=== PATIENT | female | born 1995 | race Caucasian/White ===

== ENCOUNTER 2017-11-08 17:55 | Inpatient (IN) | payer OTHER ==
[~2017-11-08] VITALS: Ht 160 cm; Wt 80.6 kg
[2017-11-08 18:10] VITALS: BP 171/98; PULSE 100; RESP 18; TEMP 97.5; O2SAT 100
[2017-11-08 19:01] LABS: AUTOMATED NEUTROPHIL # 4.4 TH/MM3 (1.8-7.7); BASOPHIL % 0.6 % (0.0-2.0); EOSINOPHIL # 0.1 TH/MM3 (0-0.4); HEMATOCRIT 43.9 % (35.0-46.0); HEMOGLOBIN 14.8 GM/DL (11.6-15.3); LYMPH % 33.3 % (9.0-44.0); LYMPHOCYTE # 2.5 TH/MM3 (1.0-4.8); MEAN CELL VOLUME 88.3 FL (80.0-100.0); MEAN CORPUSCULAR HEMOGLOBIN 29.7 PG (27.0-34.0); MEAN CORPUSCULAR HGB CONC 33.6 % (32.0-36.0); MEAN PLATELET VOLUME 8.1 FL (7.0-11.0); MONO % 5.3 % (0.0-8.0); MONOCYTE # 0.4 TH/MM3 (0-0.9); NEUT % 59.8 % (16.0-70.0); PLATELET COUNT 300 TH/MM3 (150-450); RED BLOOD COUNT 4.97 MIL/MM3 (4.00-5.30); RED CELL DISTRIBUTION WIDTH 12.3 % (11.6-17.2); WHITE BLOOD COUNT 7.4 TH/MM3 (4.0-11.0)
[2017-11-08 19:35] LABS: ACETAMINOPHEN LESS THAN 2.0 MCG/ML (10.0-30.0); ALBUMIN 3.9 GM/DL (3.4-5.0); ALKALINE PHOSPHATASE 67 U/L (45-117); ALT (GPT) 27 U/L (9-42); AST (GOT) 27 U/L (16-38); BICARBONATE 28.9 MEQ/L (21.0-32.0); BLOOD UREA NITROGEN 7 MG/DL (7-18); CALCIUM 9.3 MG/DL (8.5-10.1); CHLORIDE 107 MEQ/L (98-107); CREATININE 0.69 MG/DL (0.50-1.00); GLOMERULAR FILTRATION RATE 108 ML/MIN (>89); GLUCOSE,RANDOM 84 MG/DL (74-106); SODIUM (NA) 143 MEQ/L (136-145); TOTAL BILIRUBIN ADULT 0.2 MG/DL (0.2-1.0); TOTAL PROTEIN 7.6 GM/DL (6.4-8.2)
[2017-11-08] MEDS ORDERED: IBUPROFEN 800 MG TAB PO ONE (20:45)
--- NOTE | 2017-11-08 21:07 | PD ---
HPI Chief Complaint: Psychiatric Symptoms Time Seen by Provider: 20:33 Travel History International Travel<30 days: No Contact w/Intl Traveler<30days: No Traveled to known affect area: No History of Present Illness HPI 22-year-old female presents emergency department voluntarily for psychiatric evaluation. Patient states she has history of cutting. She has been more more depressed as of late and wanted to kill herself today. Her plan was to cut her wrists. She states that her called her and talked her out of it. Denies illicit drug use. Denies any other acute medical needs at this time. [facility] Past Medical History Medical History: Denies Significant Hx ?: Not LMP: 10/24/2017 Past Surgical History Tonsillectomy: Yes Social History Alcohol Use: No Tobacco Use: No Substance Use: No (PAST USE OF MARIJUANA) Allergies-Medications (Allergen,Severity, Reaction): Coded Allergies: codeine (Verified Allergy, Unknown, 11/08/17) morphine (Verified Allergy, Unknown, 11/08/17) Reported Meds & Prescriptions Reported Meds & Active Scripts Active No Active Prescriptions or Reported Medications Review of Systems Except as stated in HPI: all other systems reviewed are Neg Physical Exam Narrative GENERAL: Well-nourished female patient, no acute distress. SKIN: Focused skin assessment warm/dry. HEAD: Atraumatic. Normocephalic. EYES: Pupils equal and round. No scleral icterus. No injection or drainage. ENT: No nasal bleeding or discharge. Mucous membranes pink and moist. NECK: Trachea midline. No JVD. CARDIOVASCULAR: Regular rate and rhythm. No murmur appreciated. RESPIRATORY: No accessory muscle use. Clear to auscultation. Breath sounds equal bilaterally. GASTROINTESTINAL: Abdomen soft, non-tender, nondistended. Hepatic and splenic margins not palpable. MUSCULOSKELETAL: No obvious deformities. No clubbing. No cyanosis. No edema. NEUROLOGICAL: Awake and alert. No obvious cranial nerve deficits. Motor grossly within normal limits. Normal speech. Data Data Last Documented VS Vital Signs Date Time Temp Pulse Resp B/P (MAP) Pulse Ox O2 Delivery O2 Flow Rate FiO2 11/08/17 18:10 97.5 100 18 171/98 (122) 100 Orders Orders Complete Blood Count With Diff (11/08/17 18:12) Comprehensive Metabolic Panel (11/08/17 18:12) Thyroid Stimulating Hormone (11/08/17 18:12) Ed Urine Pregnancytest Poc (11/08/17 18:12) Psych Screen (11/08/17 18:12) Drug Screen, Random Urine (11/08/17 18:12) Alcohol (Ethanol) (11/08/17 18:12) Salicylates (Aspirin) (11/08/17 18:12) Tylenol (Acetaminophen) (11/08/17 18:12) Ibuprofen (Motrin) (11/08/17 20:45) Admit Order (Ed Use Only) (11/08/17 21:27) Labs Laboratory Tests Test 11/08/17 18:45 White Blood Count 7.4 TH/MM3 Red Blood Count 4.97 MIL/MM3 Hemoglobin 14.8 GM/DL Hematocrit 43.9 % Mean Corpuscular Volume 88.3 FL Mean Corpuscular Hemoglobin 29.7 PG Mean Corpuscular Hemoglobin Concent 33.6 % Red Cell Distribution Width 12.3 % Platelet Count 300 TH/MM3 Mean Platelet Volume 8.1 FL Neutrophils (%) (Auto) 59.8 % Lymphocytes (%) (Auto) 33.3 % Monocytes (%) (Auto) 5.3 % Eosinophils (%) (Auto) 1.0 % Basophils (%) (Auto) 0.6 % Neutrophils # (Auto) 4.4 TH/MM3 Lymphocytes # (Auto) 2.5 TH/MM3 Monocytes # (Auto) 0.4 TH/MM3 Eosinophils # (Auto) 0.1 TH/MM3 Basophils # (Auto) 0.0 TH/MM3 CBC Comment DIFF FINAL Differential Comment Blood Urea Nitrogen 7 MG/DL Creatinine 0.69 MG/DL Random Glucose 84 MG/DL Total Protein 7.6 GM/DL Albumin 3.9 GM/DL Calcium Level 9.3 MG/DL Alkaline Phosphatase 67 U/L Aspartate Amino Transf (AST/SGOT) 27 U/L Alanine Aminotransferase (ALT/SGPT) 27 U/L Total Bilirubin 0.2 MG/DL Sodium Level 143 MEQ/L Potassium Level 4.0 MEQ/L Chloride Level 107 MEQ/L Carbon Dioxide Level 28.9 MEQ/L Anion Gap 7 MEQ/L Estimat Glomerular Filtration Rate 108 ML/MIN Thyroid Stimulating Hormone 3rd Gen 0.586 uIU/ML Salicylates Level LESS THAN 1.7 MG/DL Urine Opiates Screen NEG Acetaminophen Level LESS THAN 2.0 MCG/ML Urine Barbiturates Screen NEG Urine Amphetamines Screen NEG Urine Benzodiazepines Screen NEG Urine Cocaine Screen NEG Urine Cannabinoids Screen POS Ethyl Alcohol Level LESS THAN 3 MG/DL MDM Medical Decision Making Medical Screen Exam Complete: Yes Emergency Medical Condition: Yes Medical Record Reviewed: Yes Differential Diagnosis Mood disorder versus personality disorder versus adjustment reaction disorder Narrative Course 22-year-old female presents emergency department voluntarily for psychiatric evaluation. Patient appears without distress. Vital signs are stable. Laboratory Tests Test 11/08/17 18:45 White Blood Count 7.4 TH/MM3 Red Blood Count 4.97 MIL/MM3 Hemoglobin 14.8 GM/DL Hematocrit 43.9 % Mean Corpuscular Volume 88.3 FL Mean Corpuscular Hemoglobin 29.7 PG Mean Corpuscular Hemoglobin Concent 33.6 % Red Cell Distribution Width 12.3 % Platelet Count 300 TH/MM3 Mean Platelet Volume 8.1 FL Neutrophils (%) (Auto) 59.8 % Lymphocytes (%) (Auto) 33.3 % Monocytes (%) (Auto) 5.3 % Eosinophils (%) (Auto) 1.0 % Basophils (%) (Auto) 0.6 % Neutrophils # (Auto) 4.4 TH/MM3 Lymphocytes # (Auto) 2.5 TH/MM3 Monocytes # (Auto) 0.4 TH/MM3 Eosinophils # (Auto) 0.1 TH/MM3 Basophils # (Auto) 0.0 TH/MM3 CBC Comment DIFF FINAL Differential Comment Blood Urea Nitrogen 7 MG/DL Creatinine 0.69 MG/DL Random Glucose 84 MG/DL Total Protein 7.6 GM/DL Albumin 3.9 GM/DL Calcium Level 9.3 MG/DL Alkaline Phosphatase 67 U/L Aspartate Amino Transf (AST/SGOT) 27 U/L Alanine Aminotransferase (ALT/SGPT) 27 U/L Total Bilirubin 0.2 MG/DL Sodium Level 143 MEQ/L Potassium Level 4.0 MEQ/L Chloride Level 107 MEQ/L Carbon Dioxide Level 28.9 MEQ/L Anion Gap 7 MEQ/L Estimat Glomerular Filtration Rate 108 ML/MIN Thyroid Stimulating Hormone 3rd Gen 0.586 uIU/ML Salicylates Level LESS THAN 1.7 MG/DL Urine Opiates Screen NEG Acetaminophen Level LESS THAN 2.0 MCG/ML Urine Barbiturates Screen NEG Urine Amphetamines Screen NEG Urine Benzodiazepines Screen NEG Urine Cocaine Screen NEG Urine Cannabinoids Screen POS Ethyl Alcohol Level LESS THAN 3 MG/DL Lab work is without acute concern. Patient is medically cleared to undergo psychiatric screening for further evaluation and disposition. Mental health screening discussed with the patient. Psychiatric screen ordered. Diagnosis Primary Impression: Adjustment reaction Qualified Codes: F43.25 - Adjustment disorder with mixed disturbance of emotions and conduct Scripts No Active Prescriptions or Reported Meds Condition: Mine Crews Nov 08, 2017 21:07
[2017-11-08] MEDS ORDERED: LORazepam 1 MG TAB PO PRN (22:00)
[2017-11-08] MEDS ORDERED: ACETAMINOPHEN 325 MG TAB PO PRN (22:00)
[2017-11-08] MEDS ORDERED: MAGNESIUM HYDROXIDE SUSP 30 ML CUP PO PRN (22:00)
[2017-11-08] MEDS ORDERED: traZODone HCL 50 MG TAB PO ONE (22:00)
[2017-11-08] MEDS ORDERED: LORazepam 2 MG/ML VIAL IM PRN (22:00)
[2017-11-08] MEDS ORDERED: ALUMINUM/MAGNESIUM/SIMETH 30 ML CUP PO PRN (22:00)
[2017-11-08] MEDS ORDERED: QUEtiapine FUMARATE 25 MG TAB PO ONE (22:15)
[2017-11-08 22:29] VITALS: BP 131/89; PULSE 87; RESP 16; TEMP 98.4; O2SAT 98
[2017-11-09 09:10] LABS: CHOLESTEROL 155 MG/DL (120-200); TRIGLYCERIDES 61 MG/DL (42-150)
[2017-11-09 09:11] LABS: CHOLESTEROL/ HDL RATIO 1.99 RATIO; HDL CHOLESTEROL 77.7 MG/DL (40.0-60.0); LDL CHOLESTEROL 65 MG/DL (0-99)
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
[2017-11-09] MEDS ORDERED: BENZTROPINE MESYLATE 1 MG TAB PO PRN (14:00)
[2017-11-09] MEDS: ARIPiprazole 5 MG TAB PO SCH (14:00)
[2017-11-09] MEDS: FLUoxetine HCL 20 MG CAP PO SCH (14:00)
[2017-11-09] MEDS ORDERED: BENZTROPINE MESYLATE 2 MG/2 ML VIAL IM PRN (14:00)
[2017-11-09 15:52] LABS: HEMOGLOBIN A1C 4.9 % (4.3-6.0)
[2017-11-09 17:29] VITALS: BP 122/68; PULSE 66; RESP 18; TEMP 98.5; O2SAT 99
[2017-11-09 18:12] VITALS: BP 133/71; PULSE 66; RESP 17; TEMP 98.8; O2SAT 99
[2017-11-09] MEDS ORDERED: ZOLPIDEM TARTRATE 5 MG TAB PO PRN (21:00)
[2017-11-10 05:55] VITALS: BP 131/57; PULSE 109; RESP 14; TEMP 98.1; O2SAT 98
[2017-11-10] MEDS: ARIPiprazole 5 MG TAB PO SCH (09:02)
[2017-11-10] MEDS: FLUoxetine HCL 20 MG CAP PO SCH (09:02)
--- NOTE | 2017-11-10 09:19 | EKG ---
Date Performed: 11/09/2017 Time Performed: 14:29:43 PTAGE: 22 years EKG: Sinus rhythm WITH SINUS ARRHYTHMIA POSSIBLE LEFT ATRIAL ENLARGEMENT BORDERLINE ECG NO PREVIOUS TRACING DOCTOR: Tommy De Leon Interpretating Date/Time 11/10/2017 09:18:27
--- NOTE | 2017-11-10 10:19 | HHI.PYPN ---
Subjective Chief Complaint: Depression, suicidal ideation Remarks Patient seen and examined with nurse. Chart reviewed. Case discussed with nursing staff. No behavioral issues noted overnight. On my examination today, the patient reports that her mood is somewhat improved although she remains fairly depressed. She has continued to experience some intrusive thoughts. Sleep was poor and the patient feels fatigued this morning. She denies any SI or urged to self-injurious behavior. Complains of some mild nausea without emesis from medications but declines an antiemetic. No other physical complaints. Review of Systems Except as stated in HPI: all other systems reviewed are Neg Mental Status Examination Appearance: Appropriate Consciousness: Alert Orientation: x4 Motor Activity: Normal gait, Other (No motor abnormalities noted) Speech: Unremarkable Language: Adequate Fund of Knowledge: Adequate Attention and Concentration: Adequate Memory: Unremarkable (Intact on clinical exam) Mood: Anxious, Other (Depressed but improving somewhat) Affect: Anxious, Other (More reactive) Thought Process & Associations: Intact, Logical, Linear Thought Content: Other (Intrusive thoughts) Hallucination Type: None Delusion Type: None Suicidal Ideation: No Suicidal Plan: No Suicidal Intention: No Homicidal Ideation: No Homicidal Plan: No Homicidal Intention: No Insight: Adequate Judgment: Adequate Results Labs Labs reviewed. EKG reviewed. QTc within normal limits. Vitals/IOs Vital Signs Date Time Temp Pulse Resp B/P (MAP) Pulse Ox O2 Delivery O2 Flow Rate FiO2 11/10/17 05:55 98.1 109 14 131/57 (81) 98 Assessment & Plan Problem List: (1) Major depressive disorder, single episode with psychotic features with anxious distress ICD Codes: F32.3 - Major depressive disorder, single episode, severe with psychotic features (2) Use of cannabis ICD Codes: F12.90 - Cannabis use, unspecified, uncomplicated Assessment & Plan Continue Prozac and Abilify as ordered. To consider medication titration tomorrow to target ongoing symptoms. Continue to monitor on inpatient unit. Continue other medications and care as ordered. Justification for Cont. Inpt. Risk for decompensation in less restrictive environment. Discharge Planning Pending psychiatric stabilization Request HC Surrog/Guard Advoc?: No Woody Burgos MD Nov 10, 2017 10:19
[2017-11-10 18:25] VITALS: BP 134/71; PULSE 109; RESP 20; TEMP 98.1; O2SAT 99
[2017-11-11 05:26] VITALS: BP 143/67; PULSE 93; RESP 16; TEMP 98.5; O2SAT 98
[2017-11-11] MEDS: ARIPiprazole 5 MG TAB PO SCH (09:04)
[2017-11-11] MEDS: FLUoxetine HCL 20 MG CAP PO SCH (09:04)
--- NOTE | 2017-11-11 12:54 | HHI.PYPN ---
Subjective Chief Complaint: Depression, suicidal ideation Remarks Patient seen and examined with nurse. Chart reviewed. Case discussed with nursing staff. On my examination today, patient reports mood continues to improve. No intrusive thoughts. No SI or HI. Suspecting significant component of improvement in mood is related to the lower stress milieu, I suggest to patient that we titrate her Prozac to a dose more likely to be therapeutic in the long-term, and patient is agreeable to this. Denies side effects from medications. No physical complaints. Review of Systems Except as stated in HPI: all other systems reviewed are Neg Mental Status Examination Appearance: Appropriate Consciousness: Alert Orientation: x4 Motor Activity: Normal gait, Other (No abnormal motor movements noted) Speech: Unremarkable Language: Adequate Fund of Knowledge: Adequate Attention and Concentration: Adequate Memory: Unremarkable (Intact on clinical exam) Mood: Anxious, Other (Improving) Affect: Anxious, Other (Again more reactive) Thought Process & Associations: Intact, Logical, Linear Thought Content: Appropriate (No intrusive thoughts) Hallucination Type: None Delusion Type: None Suicidal Ideation: No Suicidal Plan: No Suicidal Intention: No Homicidal Ideation: No Homicidal Plan: No Homicidal Intention: No Insight: Adequate Judgment: Adequate Results Labs Labs reviewed Vitals/IOs Vital Signs Date Time Temp Pulse Resp B/P (MAP) Pulse Ox O2 Delivery O2 Flow Rate FiO2 11/11/17 05:26 98.5 93 16 143/67 (92) 98 Assessment & Plan Problem List: (1) Major depressive disorder, single episode with psychotic features with anxious distress ICD Codes: F32.3 - Major depressive disorder, single episode, severe with psychotic features (2) Use of cannabis ICD Codes: F12.90 - Cannabis use, unspecified, uncomplicated Assessment & Plan Titrate Prozac to 40 mg daily. Continue Abilify as ordered. Continue to monitor on the inpatient unit. Continue other medications and care as ordered. Justification for Cont. Inpt. Med changes. Risk for decompensation in less restrictive environment. Discharge Planning Pending psychiatric stabilization Request HC Surrog/Guard Advoc?: No Woody Burgos MD Nov 11, 2017 12:54
[2017-11-11 18:31] VITALS: BP 156/86; PULSE 104; RESP 17; TEMP 98.9; O2SAT 98
[2017-11-12 05:27] VITALS: BP 133/69; PULSE 92; RESP 16; TEMP 98.4; O2SAT 98
[2017-11-12] MEDS ORDERED: FLUoxetine HCL 20 MG CAP PO SCH (09:00)
[2017-11-12] MEDS: ARIPiprazole 5 MG TAB PO SCH (10:11)
[2017-11-12] MEDS ORDERED: ARIP1TAB11 PO (14:02)
[2017-11-12] MEDS ORDERED: FLUO20CA12 PO (14:02)
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
== END 2017-11-12 16:00 | disposition home or self-care (01) | DRG 885 ==
LOC: NEPJ 17:55 → NEDA 21:29 → H260 22:17
PROVIDERS: ADMIT Psychiatry & Neurology Psychiatry; ATTEND Psychiatry & Neurology Psychiatry
DX: F32.3 Major depressive disorder, single episode, severe with psychotic features (principal); R45.851 Suicidal ideations; F12.90 Cannabis use, unspecified, uncomplicated; Z62.810 Personal history of physical and sexual abuse in childhood; Z81.8 Family history of other mental and behavioral disorders; Z88.5 Allergy status to narcotic agent; Z91.5 Personal history of self-harm
CPT/HCPCS: 80053; 80061; 80307; 83036; 84443; 84703; 85025; 93005; 99284

== ENCOUNTER 2017-12-06 14:38 | Inpatient (IN) | payer OTHER ==
[~2017-12-06] VITALS: Ht 171.4 cm; Wt 78.2 kg
[~2017-12-06 14:38] MED LIST: ARIP1TAB11 PO; FLUO20CA12 PO
[2017-12-06 15:22] VITALS: BP 154/106; PULSE 85; RESP 20; TEMP 98.4; O2SAT 100
--- NOTE | 2017-12-06 15:51 | PD ---
HPI Chief Complaint: Psychiatric Symptoms Time Seen by Provider: 15:51 Travel History International Travel<30 days: No Contact w/Intl Traveler<30days: No Traveled to known affect area: No History of Present Illness HPI 22-year-old female came to the emergency room with history of depression and obsessive-compulsive thoughts. Patient has history of depression and OCD and is on Prozac. She says the medications were working but recently it stopped working and she has been getting these thoughts severely since yesterday. She has been vomiting since she has bulimia as well and saying mean things to people that she does not want to. Patient was very tearful while she was narrating this. Vital signs are stable. She denies using alcohol or drugs. Upon asking she said there could be a chance of being since she has been having unprotected sex without any contraception. She has not done anything to hurt herself yet. She has been having suicidal thoughts. [facility] Past Medical History Narrative Medical List of her past medical, surgical, social and family history is reviewed from the nursing note Anxiety: Yes Depression: Yes Cancer: No Cardiovascular Problems: No Diabetes: No Endocrine: No Genitourinary: No Headaches: No Immune Disorder: No Musculoskeletal: No Neurologic: No Psychiatric: Yes (anxiety, depression, suicidal ideation, racing thoughts) Reproductive: No Respiratory: No Seizures: No ?: Not Past Surgical History Abdominal Surgery: No AICD: No Arteriovenous Shunt: No Cardiac Surgery: No Ear Surgery: No Endocrine Surgery: No Eye Surgery: No Genitourinary Surgery: No Gynecologic Surgery: No Insulin Pump: No Joint Replacement: No Oral Surgery: No Pacemaker: No Thoracic Surgery: No Tonsillectomy: Yes Social History Alcohol Use: No Tobacco Use: No Substance Use: Yes (thc) Allergies-Medications (Allergen,Severity, Reaction): Coded Allergies: codeine (Verified Allergy, Unknown, 11/08/17) morphine (Verified Allergy, Unknown, 11/08/17) Comments List of her allergies reviewed from the nursing note. Reported Meds & Prescriptions Reported Meds & Active Scripts Active Aripiprazole 5 Mg Tab 5 Mg PO DAILY 15 Days Fluoxetine (Fluoxetine HCl) 20 Mg Capsule 40 Mg PO DAILY 15 Days Narrative Medication List of her home medications reviewed from the nursing note. Review of Systems Except as stated in HPI: all other systems reviewed are Neg Psychiatric: Positive: Depression, Suicidal Ideations Physical Exam Narrative GENERAL: Awake, alert, tearful SKIN: Focused skin assessment warm/dry. HEAD: Atraumatic. Normocephalic. EYES: Pupils equal and round. No scleral icterus. No injection or drainage. ENT: No nasal bleeding or discharge. Mucous membranes pink and moist. NECK: Trachea midline. No JVD. CARDIOVASCULAR: Regular rate and rhythm. No murmur appreciated. RESPIRATORY: No accessory muscle use. Clear to auscultation. Breath sounds equal bilaterally. GASTROINTESTINAL: Abdomen soft, non-tender, nondistended. Hepatic and splenic margins not palpable. MUSCULOSKELETAL: No obvious deformities. No clubbing. No cyanosis. No edema. NEUROLOGICAL: Awake and alert. No obvious cranial nerve deficits. Motor grossly within normal limits. Normal speech. PSYCHIATRIC: Appropriate mood and affect; insight and judgment normal. Data Data Last Documented VS Vital Signs Date Time Temp Pulse Resp B/P (MAP) Pulse Ox O2 Delivery O2 Flow Rate FiO2 12/06/17 15:22 98.4 85 20 154/106 (122) 100 Orders Orders Ed Urine Pregnancytest Poc (12/06/17 15:57) Drug Screen, Random Urine (12/06/17 16:01) Psych Screen (12/06/17 16:01) MDM Medical Decision Making Medical Screen Exam Complete: Yes Emergency Medical Condition: Yes Medical Record Reviewed: Yes Differential Diagnosis Major depression, suicidal ideation Narrative Course 4:24 PM cleared this patient. Psych nurse is here to take her to the [facility]. She will get a psych evaluation there. Procedures EKG Prior to Arrival: Hayden Peña MD December 06, 2017 15:51
[2017-12-06] MEDS ORDERED: FLUO20CA12 PO (17:52)
[2017-12-06] MEDS ORDERED: ARIP1TAB16 PO (17:52)
[2017-12-06] MEDS ORDERED: ACETAMINOPHEN 325 MG TAB PO PRN (18:00)
[2017-12-06] MEDS ORDERED: ALUMINUM/MAGNESIUM/SIMETH 30 ML CUP PO PRN (18:00)
[2017-12-06] MEDS ORDERED: MAGNESIUM HYDROXIDE SUSP 30 ML CUP PO PRN (18:00)
[2017-12-06 18:09] VITALS: BP 136/68; PULSE 72; RESP 18; TEMP 98.4; O2SAT 96
--- NOTE | 2017-12-06 18:10 | PD ---
History of Present Illness Chief Complaint: Psychiatric Symptoms Time Seen by Provider: 17:45 Travel History International Travel<30 Days: No Contact w/Intl Traveler<30days: No Known affected area: No Legal Status Legal Status: Voluntary History of Present Illness: This is a 30 year old , female who presents voluntarily to this facility for reported worsening suicidal ideation. Patient is known to this facility with one previous admission for the same thing. She advises that approximately a week ago her fluoxetine and Abilify were decreased by half and she noticed that her thoughts of harming herself have been progressively getting worse. Patient states that her plan would be to overdose on pills and relates that she is even gone so far as to lay the pills out. Reviewed electronic medical record, labs, discuss case with staff. Patient's tox screen is negative. Patient was evaluated in her room and drape eyed. She was found to be awake, alert, and oriented 4. Her speech is clear, logical, and organized. There is no indication of internal stimulation or thought blocking. She states that she is having increasing suicidal thoughts and has laid out plans. She denies being homicidal, or experiencing auditory or visual hallucinations. I can elicit no delusional material. Her mood is sad as is her affect. She is soft spoken and relates that her has noticed a change in her of late. She reports a history of OCD and states that she just cannot control her thoughts recently she states, "it gets to be too much and I cannot control them". She lives with her and has a part-time job at [employer]. She denies using cigarettes, states that she drinks alcohol very occasionally, and denies drug use reporting that she "quit marijuana about a month ago". PFSH Past Medical History Anxiety: Yes Depression: Yes Cancer: No Cardiovascular Problems: No Diabetes: No Endocrine: No Genitourinary: No Headaches: No Immune Disorder: No Musculoskeletal: No Neurologic: No Psychiatric: Yes (anxiety, depression, suicidal ideation, racing thoughts) Reproductive: No Respiratory: No Seizures: No ?: Not Past Surgical History Abdominal Surgery: No AICD: No Arteriovenous Shunt: No Cardiac Surgery: No Ear Surgery: No Endocrine Surgery: No Eye Surgery: No Genitourinary Surgery: No Gynecologic Surgery: No Insulin Pump: No Joint Replacement: No Oral Surgery: No Pacemaker: No Thoracic Surgery: No Tonsillectomy: Yes Psychiatric History Psychiatric History Patient was treated and patient at this facility for suicidal ideation previously. Hx Psychiatric Treatment: Pt states she has had symptoms for a long time but sought treatment about a year ago. History of Inpatient Treatment: Yes Guns or firearms in home: No Social History Lives with . No tobacco use, very occasional alcohol use, denies illicit substance use at this time. Hx Alcohol Use: No Hx Tobacco Use: No Hx Substance Use: No Hx of Substance Use Treatment: No Allergies-Medications (Allergen,Severity, Reaction): Coded Allergies: codeine (Verified Allergy, Unknown, 12/06/17) Per pt. morphine (Verified Allergy, Unknown, 12/06/17) Per pt. Reported Meds & Prescriptions Reported Meds & Active Scripts Active Reported Fluoxetine (Fluoxetine HCl) 20 Mg Capsule 20 Mg PO DAILY Aripiprazole 2 Mg Tab 2 Mg PO DAILY Mental Status Examination Appearance: Appropriate Consciousness: Alert Orientation: x4 Speech: Unremarkable Language: Adequate Fund of Knowledge: Adequate Attention and Concentration: Adequate Memory: Unremarkable Mood: Sad Affect: Sad Thought Process & Associations: Intact Thought Content: Appropriate, Obsessions (With suicidal thoughts) Hallucination Type: None Delusion Type: None Suicidal Ideation: Yes Suicidal Plan: Yes Suicidal Intention: No Homicidal Ideation: No Homicidal Plan: No Homicidal Intention: No Insight: Adequate Judgment: Adequate MDM Medical Decision Making Medical Record Reviewed: Yes Assessment/Plan This is a 22-year-old , female who presents to this facility voluntarily with reports of increasing suicidal ideation. Upon examination patient is alert and oriented 4. Her speech is clear, logical, and organized. Her mood is depressed and her affect is sad. She endorses suicide by overdose and states that she has gone so far slowly the pills out. She denies being homicidal or experiencing auditory or visual hallucinations. I elicit no delusional material. Based on patient's diagnosis, and her report that her medication has been lowered and these thoughts have returned since that time, I will admit her to the 26[facility] unit for further evaluation and treatment as deemed necessary. Orders Orders Ed Urine Pregnancytest Poc (12/06/17 15:57) Drug Screen, Random Urine (12/06/17 16:01) Psych Screen (12/06/17 16:01) Diet Regular Basic (12/06/17 Dinner) Admit Order (Ed Use Only) (12/06/17 17:48) Admit To Inpatient Psych (12/06/17 ) Code Status (12/06/17 17:48) Vital Signs (Adult) STEVE.Q12H.E (12/06/17 17:48) Activity Oob Ad Denae (12/06/17 17:48) Level Of Observation (Psych) (12/06/17 17:48) Acetaminophen (Tylenol) (12/06/17 18:00) Magnesium Hydroxide Liq (Milk Of Magnesi (12/06/17 18:00) Al-Mag Hy-Si 40-40-4 Mg/Ml Liq (Mag-Al P (12/06/17 18:00) Basic Metabolic Panel (Bmp) (12/07/17 06:00) Lipid Profile (12/07/17 06:00) Hemoglobin (Hgb) A1c (12/07/17 06:00) Aripiprazole (Abilify) (12/07/17 09:00) Fluoxetine (Prozac) (12/07/17 09:00) Results Vital Signs Date Time Temp Pulse Resp B/P (MAP) Pulse Ox O2 Delivery O2 Flow Rate FiO2 12/06/17 15:22 98.4 85 20 154/106 (122) 100 Laboratory Tests Test 12/06/17 16:40 Urine Opiates Screen NEG Urine Barbiturates Screen NEG Urine Amphetamines Screen NEG Urine Benzodiazepines Screen NEG Urine Cocaine Screen NEG Urine Cannabinoids Screen NEG Diagnosis Primary Impression: OCD (obsessive compulsive disorder) Admitting Information Admitting Physician Requests: Admit Clarisa Pompa December 06, 2017 18:10
[2017-12-06 19:20] VITALS: BP 145/84; PULSE 81; RESP 17; TEMP 98.2; O2SAT 100
[2017-12-07 06:31] VITALS: BP 127/73; PULSE 75; RESP 17; TEMP 98.1; O2SAT 99
[2017-12-07 07:14] LABS: BICARBONATE 31.1 MEQ/L (21.0-32.0); BLOOD UREA NITROGEN 8 MG/DL (7-18); CHLORIDE 105 MEQ/L (98-107); CHOLESTEROL 128 MG/DL (120-200); CREATININE 0.73 MG/DL (0.50-1.00); GLOMERULAR FILTRATION RATE 102 ML/MIN (>89); GLUCOSE,RANDOM 83 MG/DL (74-106); SODIUM (NA) 142 MEQ/L (136-145); TRIGLYCERIDES 55 MG/DL (42-150)
[2017-12-07 07:17] LABS: CHOLESTEROL/ HDL RATIO 1.69 RATIO; HDL CHOLESTEROL 75.6 MG/DL (40.0-60.0); LDL CHOLESTEROL 41 MG/DL (0-99)
[2017-12-07] MEDS: FLUoxetine HCL 20 MG CAP PO SCH (08:25)
[2017-12-07] MEDS ORDERED: ARIPiprazole 2 MG TAB PO SCH (09:00)
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
[2017-12-07] MEDS: LORazepam 1 MG TAB PO PRN (15:15)
[2017-12-07 16:07] LABS: HEMOGLOBIN A1C 4.8 % (4.3-6.0)
[2017-12-07] MEDS: diphenhydrAMINE HCL 50 MG CAP PO PRN (21:15)
[2017-12-08 06:42] VITALS: BP 132/73; PULSE 79; RESP 18; TEMP 97.7; O2SAT 98
[2017-12-08] MEDS: FLUoxetine HCL 20 MG CAP PO SCH (08:17)
[2017-12-08] MEDS: ARIPiprazole 2 MG TAB PO SCH (08:17)
--- NOTE | 2017-12-08 14:36 | HHI.PYPN ---
Subjective Remarks Patient seen for follow up, chart reviewed. Discussion nursing staff reported the patient slept well, but compliant and pleasant and cooperative. Patient was found in blade on the unit noted to be calm, cooperative. Patient states that she is feeling "a lot better" stating that she feels better to restart her medications, feeling less depressed, stating having less feelings of "having to move" along with decrease intrusive thoughts. Patient states that her had visited which visit went well and that they are getting along. Patient reports tolerating medication well without adverse drug reactions. Review of Systems Except as stated in HPI: all other systems reviewed are Neg Mental Status Examination Appearance: Appropriate Consciousness: Alert Orientation: x4 Speech: Unremarkable Language: Adequate Fund of Knowledge: Adequate Attention and Concentration: Adequate Memory: Unremarkable Mood: Sad (less so today) Affect: Sad (lessening) Thought Process & Associations: Intact, Linear Thought Content: Obsessions (lessening) Hallucination Type: None Delusion Type: None Suicidal Ideation: Yes (Denies today) Suicidal Plan: No Suicidal Intention: No Homicidal Ideation: No Homicidal Plan: No Homicidal Intention: No Insight: Adequate Judgment: Adequate Results Vitals/IOs Vital Signs Date Time Temp Pulse Resp B/P (MAP) Pulse Ox O2 Delivery O2 Flow Rate FiO2 12/08/17 06:42 97.7 79 18 132/73 (92) 98 Assessment & Plan Problem List: (1) Major depressive disorder, recurrent episode with anxious distress ICD Codes: F33.9 - Major depressive disorder, recurrent, unspecified Assessment & Plan Patient this time appears to be responding well to treatment, noting less intrusive thoughts, sleeping has improved along with denying any suicide ideations. Patient to continue current treatment. We will continue to monitor mood and behavior. The patient continues to improve patient likely for discharge tomorrow. Discharge planning in progress. Justification for Cont. Inpt. At risk of further decompensation at lower level of care. Discharge Planning Return back to her residence Brian Ingram MD December 08, 2017 14:36
--- NOTE | 2017-12-08 16:58 | PD.TTN ---
Patient Problems 1. Discharge planning 2. Medication compliance 3. Knowledge deficit 4. Lack of coping skills Progress Toward Goals Provider Present: Dr. Felipe Ingram Provider Input: Dr. Ingram had his treatment team meeting to discuss patient's treatment plan, discharge and medication. Patient is calm and cooperative. Will continue to treat Nurse(s) Input: Patient appears to be doing well visible on unit, Medication compliant. Psychiatric Counselors Present: Radha Gardner [facility] Psych Therapist Input: Patient is doing better. Patient is visible on unit sociable talking to other patients. Patient is medication compliant Group Spec/RT/OT/SANCHES Present: Larissa Wilcox, RENAE Group Spec/RT/OT/SANCHES Input: Patient is selective in attending groups Radha Gardner [facility] December 08, 2017 16:58
[2017-12-08 17:38] VITALS: BP 129/63; PULSE 81; RESP 17; TEMP 98.2; O2SAT 99
[2017-12-08] MEDS: LORazepam 1 MG TAB PO PRN (19:12)
[2017-12-08] MEDS: diphenhydrAMINE HCL 50 MG CAP PO PRN (21:05)
[2017-12-09 06:07] VITALS: BP 126/65; PULSE 78; RESP 16; TEMP 98.4; O2SAT 98
[2017-12-09] MEDS: ARIPiprazole 2 MG TAB PO SCH (09:19)
[2017-12-09] MEDS: FLUoxetine HCL 20 MG CAP PO SCH (09:19)
[2017-12-09] MEDS ORDERED: FLUO40CA PO (09:51)
[2017-12-09] MEDS ORDERED: ARIP1TAB16 PO (09:51)
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
[2017-12-09] MEDS ORDERED: DIPH50CA PO (10:58)
== END 2017-12-09 11:05 | disposition home or self-care (01) | DRG 885 ==
LOC: NEPD 14:38 → NEDA 17:57 → H260 19:20
PROVIDERS: ADMIT Student in an Organized Health Care Education/Training Program; ATTEND Student in an Organized Health Care Education/Training Program
DX: F33.9 Major depressive disorder, recurrent, unspecified (principal); Z91.410 Personal history of adult physical and sexual abuse
CPT/HCPCS: 80048; 80061; 80307; 83036; 84703; 99285; Q0163